=== PATIENT | male | born 1965 ===

== ENCOUNTER 2022-09-09 15:36 | Outpatient (REF) | payer OTHER, SELFPAY ==
[2022-09-09 17:29] LABS: Anion Gap 10 (12-20); Blood Urea Nitrogen 26 mg/dL (9-16); Calcium 9.2 mg/dL (8.4-10.2); Carbon Dioxide 30 mmol/L (22-29); Chloride 105 mmol/L (96-108); Estimated Glomerular Filt Rate > 60; Glucose Random 100 mg/dL (60-115); Potassium 4.1 mmol/L (3.3-5.1); Sodium 141 mmol/L (135-145)
== END 2022-09-09 15:37 | disposition home or self-care (01) ==
LOC: HO.LAB 15:36
PROVIDERS: PCP Internal Medicine; Visit Provider Surgery
DX: R22.31 Localized swelling, mass and lump, right upper limb (principal); M54.2 Cervicalgia
CPT/HCPCS: 36415; 80048; 99202

== ENCOUNTER 2022-09-24 16:29 | Outpatient (REF) | payer OTHER, SELFPAY ==
--- NOTE | ~2022-09-24 | MR_ITS ---
EXAMINATION: MR SHOULDER WITHOUT AND WITH CONTRAST, RIGHT CLINICAL INFORMATION: Right shoulder pain. Lump, increasing in size. COMPARISON: None TECHNIQUE: MRI of the shoulder was performed before and after the intravenous administration of 7.5 mL Gadavist on a high-field scanner. FINDINGS: ROTATOR CUFF: Intact. No muscle atrophy or fatty infiltration. BICEPS: Intact. CORACOACROMIAL ARCH: The undersurface of the acromion is curved with no subacromial spur. The acromioclavicular joint is normal. Trace fluid/edema within the subacromial subdeltoid bursa with minimal enhancement consistent with mild bursitis. LABRUM/CAPSULE: No displaced labral tear. Intact joint capsule. GLENOHUMERAL JOINT/MARROW: Intact articular cartilage. No acute osseous injury. No marrow enhancement. No concerning lytic or blastic osseous lesion. DELTOID: Within the anterior deltoid muscle there is a fat signal lesion measuring 3.8 x 5.9 x 8.5 cm (AP by ML by CC). No soft tissue component or postcontrast enhancement. There is a prominent vessel along the superior aspect of the lesion without inflammation or soft tissue. MR/MR shoulder RT wo/w con IMPRESSION: 1. 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 No soft tissue component or postcontrast enhancement to suggest a more aggressive lesion. 2. Mild subacromial subdeltoid bursitis. 3. No acute osseous abnormality. No concerning lytic or blastic osseous lesion.
== END 2022-09-24 16:30 | disposition home or self-care (01) ==
LOC: HO.MRI 16:29
PROVIDERS: Visit Provider Surgery
DX: R22.30 Localized swelling, mass and lump, unspecified upper limb (principal)
CPT/HCPCS: 73223; A9585

== ENCOUNTER 2022-10-09 16:13 | Outpatient (REF) | payer OTHER, SELFPAY ==
--- NOTE | ~2022-10-09 | US_ITS ---
EXAMINATION: US THYROID CLINICAL INFORMATION: Thyroid nodule. COMPARISON: None TECHNIQUE: Linear transducer grayscale and color Doppler examination with attention to the region of the thyroid. FINDINGS: SIZE: Measurements of the thyroid lobes and nodules are given in sagittal, anteroposterior and transverse dimensions respectively. Right Thyroid Lobe: 4.8 x 1.6 x 1.8 cm, volume 7.2 mL. Parenchyma: The gland echotexture is homogeneous. Thyroid vascularity is increased. Left Thyroid Lobe: 4.1 x 2.0 x 2.3 cm, volume 10.0 mL. Parenchyma: The gland echotexture is heterogeneous. Thyroid vascularity is increased. Isthmus: 0.2 cm in maximum AP dimension. Estimated total number of nodules greater than or equal to 1 cm: 1. [employer] nodules are described as follows: 1. Location: Left mid. Size: 2.9 x 1.8 x 1.9 cm, volume 5.2 mL. Nodule characteristics: Composition: Solid/almost completely solid (2). Echogenicity: Isoechoic (1). Shape: Not taller than wide (0). Margins: Ill-defined (0). Echogenic Foci: Comet-tail artifacts (0). ACR TI-RADS total points: 2 ACR TI-RADS category: 2 6 x 5 x 5 mm hyperechoic solid nodule inferior to the left lobe. This demonstrates minimal vascularity. NODES: Small left cervical lymph node measuring 6 x 6 x 6 mm. This is diffusely hypoechoic with loss loss of normal fatty hilum. This demonstrates mixed cortical and hilar flow. US/US thyroid IMPRESSION: 2 x 3 cm left thyroid nodule. Fine-needle aspiration recommended. ACR TI-RADS RECOMMENDATION REFERENCE: Ultrasound-guided fine-needle aspiration, followup ultrasound, no further follow up. * TR1 (0 point) and TR 2 (2 points): No FNA or follow up. * TR3 (3 points): FNA if more than or equal to 2.5 cm in maximum dimension, followup ultrasound in 1, 3 and 5 years if 1.5 to 2.4 cm in maximum dimension. * TR4 (4-6 points): FNA if more than or equal to 1.5 cm in maximum dimension, followup ultrasound in 1, 2, 3 and 5 years if 1 to 1.4 cm in maximum dimension. * TR5 (more than or equal to 7 points): FNA if more than or equal to 1 cm in maximum dimension, followup ultrasound every year for 5 years if 0.5 to 0.9 cm in maximum dimension. * TR3, TR4 or TR5 nodules that are below the size threshold for followup receive no follow up.
== END 2022-10-09 16:14 | disposition home or self-care (01) ==
LOC: HO.US 16:13
PROVIDERS: PCP Internal Medicine; Visit Provider Internal Medicine
DX: R91.1 Solitary pulmonary nodule (principal)
CPT/HCPCS: 76536

== ENCOUNTER → 2022-10-14 15:16 | Outpatient (BNVA) | payer OTHER, SELFPAY | PROVIDERS: PCP Internal Medicine; Visit Provider Surgery | DX: D17.9 Benign lipomatous neoplasm, unspecified (principal); R22.31 Localized swelling, mass and lump, right upper limb; M54.2 Cervicalgia | CPT/HCPCS: 99212 ==

== ENCOUNTER 2023-02-09 15:03 | Outpatient (REF) | payer OTHER, SELFPAY ==
[2023-02-09 18:06] LABS: Free T4 (Free Thyroxine) 0.89 ng/dL (0.71-1.85); Thyroid Stimulating Hormone 1.77 uIU/mL (0.32-4.0)
== END 2023-02-09 15:04 | disposition home or self-care (01) ==
LOC: HO.LAB 15:03
PROVIDERS: PCP Internal Medicine; Visit Provider Internal Medicine
DX: E04.2 Nontoxic multinodular goiter (principal); Z79.899 Other long term (current) drug therapy
CPT/HCPCS: 36415; 84439; 84443; 99202

== ENCOUNTER → 2023-02-25 07:53 | Outpatient (BNVA) | payer OTHER, SELFPAY | PROVIDERS: PCP Internal Medicine; Visit Provider Orthopaedic Surgery | DX: M65.341 Trigger finger, right ring finger (principal); M65.332 Trigger finger, left middle finger; M65.342 Trigger finger, left ring finger; M65.352 Trigger finger, left little finger | CPT/HCPCS: 20550; 99202; J1100 ==

== ENCOUNTER 2023-03-10 13:56 | Emergency (ER) | payer OTHER, SELFPAY ==
--- NOTE | ~2023-03-10 | US_ITS ---
EXAMINATION: US ABDOMEN LIMITED CLINICAL INFORMATION: Epigastric and right upper quadrant pain. COMPARISON: None available. TECHNIQUE: Real-time imaging of the right upper quadrant abdominal viscera. FINDINGS: PANCREAS: Not visualized due to bowel gas LIVER: There are prominent bile ducts or portal triads seen in the liver. There are small echogenic foci with ringdown artifact questionable for pneumobilia. No focal liver lesion or biliary duct dilatation. The liver echotexture is slightly heterogeneous the contour of the liver is slightly irregular questionable for mild cirrhotic change. GALLBLADDER: Surgically removed COMMON BILE DUCT: Not well visualized. RIGHT KIDNEY: Normal. No hydronephrosis. No renal calculi or focal parenchymal lesions. The kidney measures 10.6 cm in maximum dimension. FREE FLUID: None. US/US abdomen limited IMPRESSION: Post cholecystectomy. Question pneumobilia and mild cirrhotic changes of the liver. No biliary duct dilatation. Pancreas and common bile duct not seen.
--- NOTE | ~2023-03-10 | CT_ITS ---
EXAMINATION: CT ABDOMEN AND PELVIS WITH CONTRAST CLINICAL INFORMATION: Upper abdominal pain with pneumobilia. COMPARISON: Previous abdominal ultrasound from earlier the same day TECHNIQUE: Multidetector volumetric images were obtained from the superior aspect of the liver through the pubic symphysis following administration 85 mL of Omnipaque 350 intravenous contrast. Sagittal and coronal reformatted images were obtained on the technologist's workstation. Oral contrast: Yes This CT examination was performed using dose optimization techniques as appropriate, variously including the following: *Automated exposure control *Adjustment of mA and/or kV according to patient size (this includes techniques or standardized protocols for targeted exams where dose is matched to indication/reason for exam; i.e. extremities or head) *Use of iterative reconstruction technique DLP: 472 mGy-cm FINDINGS: LUNG BASES: Old trauma to the right posterior lateral chest wall. Right diaphragmatic hernia containing fat. LIVER, GALLBLADDER, AND BILIARY TREE: The liver is normal in size, shape, and attenuation. No focal hepatic lesion or biliary ductal dilatation is present. The gallbladder has been removed. PANCREAS: Unremarkable. SPLEEN: Unremarkable. ADRENAL GLANDS: Unremarkable. KIDNEYS AND URETERS: The kidneys are normal in size, shape, and attenuation. No hydronephrosis, hydroureter, or calculi seen. No perinephric stranding. BLADDER: Enlarged prostate gland that protrudes into the base of the bladder. GASTROINTESTINAL TRACT: Diverticulosis of the colon. No evidence of diverticulitis. Small and large bowel are otherwise unremarkable. The appendix is not seen. There is wall thickening of the distal stomach. Stomach is distended and filled with fluid. Small bowel is unremarkable. The appendix is not seen. ABDOMINAL WALL: Previous left groin hernia repair with mesh. Small lipoma of the right gluteal muscles. LYMPH NODES: Normal. VASCULAR: Unremarkable. PELVIC VISCERA: The prostate gland is enlarged and protrudes into the base of the bladder. Prostate gland measures 5 x 5 cm in AP and transverse dimension. OSSEOUS STRUCTURES: Old right rib fractures. Mild degenerative changes of the spine. CT/CT abdomen pelvis w IV con IMPRESSION: Diverticulosis of the colon. No evidence of diverticulitis. Distended fluid-filled stomach and wall thickening of the distal stomach. This could be better evaluated with upper GI or endoscopy if clinically indicated. Enlarged prostate gland that protrudes into the base of the bladder. Normal-appearing liver. Old trauma to the right posterior lateral chest wall and a small right diaphragmatic hernia containing fat. Fleischner guidelines were followed.
[2023-03-10 14:10] VITALS: PULSE 55; RESP 16; TEMP 35.8; O2SAT 99; BMI 29.2
--- NOTE | 2023-03-10 14:12 | ED.ABDPAIN ---
HPI - Abdominal Pain General Chief Complaint: Abdominal Pain <ABHILASH Boyd - Last Filed: 03/10/23 14:17> Stated Complaint: Abd pain <ABHILASH Boyd Last Filed: 03/10/23 14:17> Time Seen by Provider: 03/10/23 19:35 <ABHILASH Boyd - Last Filed: 03/10/23 14:17> Source: patient <Jeronimo Gr MD - Last Filed: 03/11/23 01:12> Mode of arrival: ambulatory <Jeronimo Gr MD - Last Filed: 03/11/23 01:12> Limitations: no limitations <Jeronimo Gr MD - Last Filed: 03/11/23 01:12> History of Present Illness HPI narrative: Patient with History of BPH , status post cholecystectomy comes here for the pain in upper abdomen epigastric radiating to whole abdomen for last few hours slight nausea no vomiting no diarrhea patient used a gastritis in the past not taking any medication not take any NSAID <Jeronimo Gr MD - Last Filed: 03/11/23 01:12> Related Data Home Medications: Home Medications Medication Instructions Recorded Confirmed finasteride 5 mg tablet 5 mg PO DAILY 02/09/23 02/09/23 tamsulosin 0.4 mg capsule 0.4 mg PO DAILY 02/09/23 02/09/23 Previous Rx's Medication Instructions Recorded pantoprazole 40 mg tablet,delayed 40 mg PO DAILY #30 tabs 03/10/23 release (Protonix) sucralfate 1 gram tablet 1 g PO BID #60 tabs 03/10/23 <ABHILASH Boyd - Last Filed: 03/10/23 14:17> Allergies/Adverse Reactions: Allergies Allergy/AdvReac Type Severity Reaction Status Date / Time aspirin Allergy Mild Rash Verified 02/25/23 08:08 ibuprofen Allergy Mild Itching Verified 02/25/23 08:08 Penicillins Allergy Rash Verified 02/25/23 08:08 <ABHILASH Boyd Last Filed: 03/10/23 14:17> Review of Systems Review of Systems Yes all other systems are reviewed and are negative <Jeronimo Gr MD - Last Filed: 03/11/23 01:12> PMF Past Medical History Medical History: Medical History BPH (benign prostatic hyperplasia) Multinodular thyroid <ABHILASH Boyd - Last Filed: 03/10/23 14:17> Surgical History: Surgical History History of appendectomy History of hernia repair <ABHILASH Boyd - Last Filed: 03/10/23 14:17> Family History Family History: Family History Mother No problems noted. 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0 F Pulse Rate 55 54 Respiratory Rate 16 18 16 Blood Pressure 127/74 Pulse Oximetry 99 99 Oxygen Delivery Method Room Air Room Air 03/10/23 22:50 Temperature 98 F Pulse Rate 52 Respiratory Rate 13 Blood Pressure 120/80 Pulse Oximetry 95 Oxygen Delivery Method Room Air BMI result Body Mass Index 29.2 <Jeronimo Gr MD - Last Filed: 03/11/23 01:12> Appearance: Alert. Oriented X3. No acute distress. Eyes: PERRLA, No Nystagmus ENT: Pharynx normal. Oral Mucosa moist Neck: Normal inspection. Neck supple. CVS: Normal heart rate and rhythm. Pulses normal. Respiratory: No respiratory distress. Equal air entry bilateral, no wheezing/rales/rhonchi Abdomen: Soft mild epigastric tenderness no rebound tenderness or guarding Bowel sounds are present, no mass palpable, no CVA tenderness Skin: Skin warm and dry. Normal skin color. Normal skin turgor. Extremities: No lower extremity edema. No calf tenderness Neuro: Oriented X 3. No motor deficit. No sensory deficit.No cerebellar signs , cranial nerves II-XII intact <Jeronimo Gr MD - Last Filed: 03/11/23 01:12> Course Course Course Narrative: RME: 57 yo M w/PMHx BPH c/o epigastric/upper abd pain radiating up chest & to right shoulder since 12:30PM. Admit symptoms began after eating. Denies SOB, dysuria/hematuria Abdomen soft with epigastric/RUQ tenderness, rebound or guarding EKG, labs, UA, abdomen ultrasound ordered Full HPI, ROS and PE to be performed by primary ED provider. <ABHILASH Boyd - Last Filed: 03/10/23 14:17> Medical Decision Making Medical Decision Making [facility] Narrative: Patient ultrasound showed pneumobilia but CT scan was negative for any acute pathology. Will discharge patient home Prilosec for gastritis was to follow-up with gastroenterology <Jeronimo Gr MD - Last Filed: 03/11/23 01:12> Lab Data [facility] Lab Attestation statement: I reviewed the patient's lab results. <Jeronimo Gr MD - Last Filed: 03/11/23 01:12> Result Diagrams: 03/10/23 15:25 03/10/23 15:25 <ABHILASH Boyd - Last Filed: 03/10/23 14:17> Labs: Lab Results 05/07/2503/10/23 03/10/23 Range/Units 15:25 15:25 15:25 WBC 12.6 H (4.8-10.8) X10*3/uL RBC 4.59 L (4.60-5.80) X10*6/uL Hgb 14.4 (14.0-18.0) g/dl Hct 42.9 (42.0-52.0) % MCV 93.5 (80.0-98.0) fL MCH 31.4 (27.0-33.0) pg MCHC 33.6 (31.0-36.0) g/dl RDW 13.0 (11.0-16.0) % Plt Count 217 (160-400) X10*3/uL MPV 8.7 L (9.4-12.4) fL Immature Gran % (Auto) 0.4 (0.0-0.4) % Neut % (Auto) 86.3 H (45-73) % Lymph % (Auto) 7.7 L (20-40) % [place] % (Auto) 3.6 (2-11) % Eos % (Auto) 1.7 (0-4) % Baso % (Auto) 0.3 (0-2) % Lymph # (Auto) 1.0 L (1.2-4.9) X10*3/uL [place] # (Auto) 0.5 (0.1-1.2) X10*3/uL Eos # (Auto) 0.2 (0.0-0.4) X10*3/uL Baso # (Auto) 0.0 (0.0-0.2) X10*3/uL Abs Immat Gran (auto) 0.05 H (0.00-0.03) X10*3/uL Absolute Neuts (auto) 10.9 H (2.0-8.3) x10*3/uL Absolute Nucleated RBC 0.000 (0.0-0.012) X10*3/uL Nucleated RBC % (auto) 0.0 (0.0-0.2) /100WBC PT (10.0-13.1) SEC INR (0.9-1.1) Sodium 143 (135-145) mmol/L Potassium 3.9 (3.3-5.1) mmol/L Chloride 108 (96-108) mmol/L Carbon Dioxide 26 (22-29) mmol/L Anion Gap 13 (12-20) BUN 23 H (9-16) mg/dL Creatinine 0.92 (0.5-1.4) mg/dL Estim Creat Clear Calc 76.5 Estimated GFR > 60 Random Glucose 149 H (60-115) mg/dL Lactic Acid (0.5-2.0) mmol/L Calcium 9.3 (8.4-10.2) mg/dL Magnesium 2.5 (1.6-2.6) mg/dL Total Bilirubin 1.8 H (0.0-1.0) mg/dL Direct Bilirubin 0.8 H (0.0-0.5) mg/dL AST 218 H (5-37) U/L ALT 157 H (0-40) U/L Alkaline Phosphatase 80 (39-117) U/L Troponin I High Sens < 2.7 (<3.5-35.0) ng/L B-Natriuretic Peptide (<100) pg/mL Total Protein 6.5 (6.5-8.0) g/dL Albumin 4.2 (3.5-5.0) g/dL Lipase 29 (8-78) U/L 03/10/23 03/10/23 03/10/23 Range/Units 15:25 15:25 20:17 WBC (4.8-10.8) X10*3/uL RBC (4.60-5.80) X10*6/uL Hgb (14.0-18.0) g/dl Hct (42.0-52.0) % MCV (80.0-98.0) fL MCH (27.0-33.0) pg MCHC (31.0-36.0) g/dl RDW (11.0-16.0) % Plt Count (160-400) X10*3/uL MPV (9.4-12.4) fL Immature Gran % (Auto) (0.0-0.4) % Neut % (Auto) (45-73) % Lymph % (Auto) (20-40) % [place] % (Auto) (2-11) % Eos % (Auto) (0-4) % Baso % (Auto) (0-2) % Lymph # (Auto) (1.2-4.9) X10*3/uL [place] # (Auto) (0.1-1.2) X10*3/uL Eos # (Auto) (0.0-0.4) X10*3/uL Baso # (Auto) (0.0-0.2) X10*3/uL Abs Immat Gran (auto) (0.00-0.03) X10*3/uL Absolute Neuts (auto) (2.0-8.3) x10*3/uL Absolute Nucleated RBC (0.0-0.012) X10*3/uL Nucleated RBC % (auto) (0.0-0.2) /100WBC PT 11.7 (10.0-13.1) SEC INR 1.0 (0.9-1.1) Sodium (135-145) mmol/L Potassium (3.3-5.1) mmol/L Chloride (96-108) mmol/L Carbon Dioxide (22-29) mmol/L Anion Gap (12-20) BUN (9-16) mg/dL Creatinine (0.5-1.4) mg/dL Estim Creat Clear Calc Estimated GFR Random Glucose (60-115) mg/dL Lactic Acid 0.7 (0.5-2.0) mmol/L Calcium (8.4-10.2) mg/dL Magnesium (1.6-2.6) mg/dL Total Bilirubin (0.0-1.0) mg/dL Direct Bilirubin (0.0-0.5) mg/dL AST (5-37) U/L ALT (0-40) U/L Alkaline Phosphatase (39-117) U/L Troponin I High Sens (<3.5-35.0) ng/L B-Natriuretic Peptide 56 (<100) pg/mL Total Protein (6.5-8.0) g/dL Albumin (3.5-5.0) g/dL Lipase (8-78) U/L <ABHILASH Boyd - Last Filed: 03/10/23 14:17> Lab Results 03/10/23 03/10/23 03/10/23 Range/Units 15:25 15:25 15:25 WBC 12.6 H (4.8-10.8) X10*3/uL RBC 4.59 L (4.60-5.80) X10*6/uL Hgb 14.4 (14.0-18.0) g/dl Hct 42.9 (42.0-52.0) % MCV 93.5 (80.0-98.0) fL MCH 31.4 (27.0-33.0) pg MCHC 33.6 (31.0-36.0) g/dl RDW 13.0 (11.0-16.0) % Plt Count 217 (160-400) X10*3/uL MPV 8.7 L (9.4-12.4) fL Immature Gran % (Auto) 0.4 (0.0-0.4) % Neut % (Auto) 86.3 H (45-73) % Lymph % (Auto) 7.7 L (20-40) % [place] % (Auto) 3.6 (2-11) % Eos % (Auto) 1.7 (0-4) % Baso % (Auto) 0.3 (0-2) % Lymph # (Auto) 1.0 L (1.2-4.9) X10*3/uL [place] # (Auto) 0.5 (0.1-1.2) X10*3/uL Eos # (Auto) 0.2 (0.0-0.4) X10*3/uL Baso # (Auto) 0.0 (0.0-0.2) X10*3/uL Abs Immat Gran (auto) 0.05 H (0.00-0.03) X10*3/uL Absolute Neuts (auto) 10.9 H (2.0-8.3) x10*3/uL Absolute Nucleated RBC 0.000 (0.0-0.012) X10*3/uL Nucleated RBC % (auto) 0.0 (0.0-0.2) /100WBC PT (10.0-13.1) SEC INR (0.9-1.1) Sodium 143 (135-145) mmol/L Potassium 3.9 (3.3-5.1) mmol/L Chloride 108 (96-108) mmol/L Carbon Dioxide 26 (22-29) mmol/L Anion Gap 13 (12-20) BUN 23 H (9-16) mg/dL Creatinine 0.92 (0.5-1.4) mg/dL Estim Creat Clear Calc 76.5 Estimated GFR > 60 Random Glucose 149 H (60-115) mg/dL Lactic Acid (0.5-2.0) mmol/L Calcium 9.3 (8.4-10.2) mg/dL Magnesium 2.5 (1.6-2.6) mg/dL Total Bilirubin 1.8 H (0.0-1.0) mg/dL Direct Bilirubin 0.8 H (0.0-0.5) mg/dL AST 218 H (5-37) U/L ALT 157 H (0-40) U/L Alkaline Phosphatase 80 (39-117) U/L Troponin I High Sens < 2.7 (<3.5-35.0) ng/L B-Natriuretic Peptide (<100) pg/mL Total Protein 6.5 (6.5-8.0) g/dL Albumin 4.2 (3.5-5.0) g/dL Lipase 29 (8-78) U/L 03/10/23 03/10/23 03/10/23 Range/Units 15:25 15:25 20:17 WBC (4.8-10.8) X10*3/uL RBC (4.60-5.80) X10*6/uL Hgb (14.0-18.0) g/dl Hct (42.0-52.0) % MCV (80.0-98.0) fL MCH (27.0-33.0) pg MCHC (31.0-36.0) g/dl RDW (11.0-16.0) % Plt Count (160-400) X10*3/uL MPV (9.4-12.4) fL Immature Gran % (Auto) (0.0-0.4) % Neut % (Auto) (45-73) % Lymph % (Auto) (20-40) % [place] % (Auto) (2-11) % Eos % (Auto) (0-4) % Baso % (Auto) (0-2) % Lymph # (Auto) (1.2-4.9) X10*3/uL [place] # (Auto) (0.1-1.2) X10*3/uL Eos # (Auto) (0.0-0.4) X10*3/uL Baso # (Auto) (0.0-0.2) X10*3/uL Abs Immat Gran (auto) (0.00-0.03) X10*3/uL Absolute Neuts (auto) (2.0-8.3) x10*3/uL Absolute Nucleated RBC (0.0-0.012) X10*3/uL Nucleated RBC % (auto) (0.0-0.2) /100WBC PT 11.7 (10.0-13.1) SEC INR 1.0 (0.9-1.1) Sodium (135-145) mmol/L Potassium (3.3-5.1) mmol/L Chloride (96-108) mmol/L Carbon Dioxide (22-29) mmol/L Anion Gap (12-20) BUN (9-16) mg/dL Creatinine (0.5-1.4) mg/dL Estim Creat Clear Calc Estimated GFR Random Glucose (60-115) mg/dL Lactic Acid 0.7 (0.5-2.0) mmol/L Calcium (8.4-10.2) mg/dL Magnesium (1.6-2.6) mg/dL Total Bilirubin (0.0-1.0) mg/dL Direct Bilirubin (0.0-0.5) mg/dL AST (5-37) U/L ALT (0-40) U/L Alkaline Phosphatase (39-117) U/L Troponin I High Sens (<3.5-35.0) ng/L B-Natriuretic Peptide 56 (<100) pg/mL Total Protein (6.5-8.0) g/dL Albumin (3.5-5.0) g/dL Lipase (8-78) U/L <Jeronimo Gr MD - Last Filed: 03/11/23 01:12> Radiology Impression Discussion of test interpretation with radiology: I have reviewed the radiologist's reading. <Jeronimo Gr MD - Last Filed: 03/11/23 01:12> Radiologist Impression: US/US abdomen limited IMPRESSION: Post cholecystectomy. Question pneumobilia and mild cirrhotic changes of the liver. No biliary duct dilatation. Pancreas and common bile duct not seen. CT/CT abdomen pelvis w IV con IMPRESSION: Diverticulosis of the colon. No evidence of diverticulitis. Distended fluid-filled stomach and wall thickening of the distal stomach. This could be better evaluated with upper GI or endoscopy if clinically indicated. Enlarged prostate gland that protrudes into the base of the bladder. Normal-appearing liver. Old trauma to the right posterior lateral chest wall and a small right diaphragmatic hernia containing fat. Fleischner guidelines were followed. <Jeronimo Gr MD - Last Filed: 03/11/23 01:12> Medications Administered Discontinued Medications Generic Name Dose Route Start Last Admin Trade Name Freq PRN Reason Stop Dose Admin Al Hydroxide/Mg Hydroxide 30 ml 03/10/23 22:36 03/10/23 22:54 Magnesium Hydrox/Alum Hydrox 30 Ml Oral.Susp PO 03/10/23 22:37 30 ml ONCE ONE Administration Sodium Chloride 1,000 mls @ 999 mls/hr 03/10/23 20:11 03/10/23 22:17 Ns IV 03/10/23 21:11 Infused .Q1H1M ONE Infusion Iohexol 100 ml 03/10/23 20:56 03/10/23 20:56 Iohexol 350 Mg/Ml 100 Ml Infus..Btl IV 03/10/23 20:57 85 ml ONCE ONE Administration Morphine Sulfate 4 mg 03/10/23 20:10 03/10/23 20:32 Morphine Sulfate 4 Mg/Ml Cartridge IVPUSH 03/10/23 20:11 4 mg ONCE ONE Administration Protocol Omeprazole 40 mg 03/10/23 22:36 03/10/23 22:54 Omeprazole 40 Mg Capsule.Dr PO 03/10/23 22:37 40 mg ONCE ONE Administration Ondansetron HCl 4 mg 03/10/23 20:10 03/10/23 20:33 Ondansetron Hcl 4 Mg/2 Ml Vial IVPUSH 03/10/23 20:11 4 mg ONCE ONE Administration <ABHILASH Boyd - Last Filed: 03/10/23 14:17> Medications Administered Discontinued Medications Generic Name Dose Route Start Last Admin Trade Name Freq PRN Reason Stop Dose Admin Al Hydroxide/Mg Hydroxide 30 ml 03/10/23 22:36 03/10/23 22:54 Magnesium Hydrox/Alum Hydrox 30 Ml Oral.Susp PO 03/10/23 22:37 30 ml ONCE ONE Administration Sodium Chloride 1,000 mls @ 999 mls/hr 03/10/23 20:11 03/10/23 22:17 Ns IV 03/10/23 21:11 Infused .Q1H1M ONE Infusion Iohexol 100 ml 03/10/23 20:56 03/10/23 20:56 Iohexol 350 Mg/Ml 100 Ml Infus..Btl IV 03/10/23 20:57 85 ml ONCE ONE Administration Morphine Sulfate 4 mg 03/10/23 20:10 03/10/23 20:32 Morphine Sulfate 4 Mg/Ml Cartridge IVPUSH 03/10/23 20:11 4 mg ONCE ONE Administration Protocol Omeprazole 40 mg 03/10/23 22:36 03/10/23 22:54 Omeprazole 40 Mg Capsule.Dr PO 03/10/23 22:37 40 mg ONCE ONE Administration Ondansetron HCl 4 mg 03/10/23 20:10 03/10/23 20:33 Ondansetron Hcl 4 Mg/2 Ml Vial IVPUSH 03/10/23 20:11 4 mg ONCE ONE Administration <Jeronimo Gr MD - Last Filed: 03/11/23 01:12> Discharge Plan Discharge Clinical Impression: Acute on chronic gastritis <ABHILASH Boyd - Last Filed: 03/10/23 14:17> Patient Disposition: Home, Self-Care <ABHILASH Boyd - Last Filed: 03/10/23 14:17> Instructions: Gastritis (ED) <ABHILASH Boyd - Last Filed: 03/10/23 14:17> Additional Instructions: Take medication as prescribed Avoid fried and spicy food Do not take ibuprofen or Advil Follow-up with repair technician for further evaluation <ABHILASH Boyd - Last Filed: 03/10/23 14:17> Prescriptions: New pantoprazole [Protonix] 40 mg tablet,delayed release (DR/EC) 40 mg PO DAILY Qty: 30 0RF sucralfate 1 gram tablet 1 g PO BID Qty: 60 0RF No Action finasteride 5 mg tablet 5 mg PO DAILY tamsulosin 0.4 mg capsule 0.4 mg PO DAILY <ABHILASH Boyd - Last Filed: 03/10/23 14:17> Referrals: Rashaad Zaman MD [Physician] - 1 week <ABHILASH Boyd - Last Filed: 03/10/23 14:17> Stand Alone Forms: Work/School Release <ABHILASH Boyd - Last Filed: 03/10/23 14:17> Interventions: ED Discharge Assessment Last Done: 03/10/23 23:04 <ABHILASH Boyd - Last Filed: 03/10/23 14:17> Discharge Date/Time: 03/10/23 23:06 <ABHILASH Boyd - Last Filed: 03/10/23 14:17>
--- NOTE | 2023-03-10 14:13 | ECG_ITS ---
Test Reason : EPIGASTRIC ABD PAIN Blood Pressure : / mmHG Vent. Rate : 054 BPM Atrial Rate : 054 BPM P-R Int : 146 ms QRS Dur : 084 ms QT Int : 384 ms P-R-T Axes : 021 028 035 degrees QTc Int : 364 ms Sinus bradycardia Nonspecific T wave abnormality Abnormal ECG No previous ECGs available Referred By: Pamela Petersen Electronically Signed By:SVETLANA BAUMANN
[2023-03-10 15:31] LABS: MANUAL DIFF FLAG NO
[2023-03-10 15:35] LABS: Basophils Percent Auto 0.3 % (0-2); Eosinophils Absolute Auto 0.2 X10*3/uL (0.0-0.4); Eosinophils Percent Auto 1.7 % (0-4); Hematocrit 42.9 % (42.0-52.0); Hemoglobin 14.4 g/dl (14.0-18.0); Imm Gran Abs Auto 0.05 X10*3/uL (0.00-0.03); Imm Gran Pct Auto 0.4 % (0.0-0.4); Lymphocytes Percent Auto 7.7 % (20-40); Mean Corpuscular HGB Conc 33.6 g/dl (31.0-36.0); Mean Corpuscular Hemoglobin 31.4 pg (27.0-33.0); Mean Corpuscular Volume 93.5 fL (80.0-98.0); Mean Platelet Volume 8.7 fL (9.4-12.4); Monocytes Absolute Auto 0.5 X10*3/uL (0.1-1.2); Monocytes Percent Auto 3.6 % (2-11); Neutrophils Absolute Auto 10.9 x10*3/uL (2.0-8.3); Neutrophils Percent Auto 86.3 % (45-73); Platelet Count 217 X10*3/uL (160-400); Red Blood Count 4.59 X10*6/uL (4.60-5.80); White Blood Count 12.6 X10*3/uL (4.8-10.8)
[2023-03-10 15:46] LABS: Prothrombin Time 11.7 SEC (10.0-13.1)
[2023-03-10 16:05] LABS: B Type Natriuretic Peptide 56 pg/mL (<100)
[2023-03-10 16:14] LABS: Troponin-I High Sensitivity < 2.7 ng/L (<3.5-35.0)
[2023-03-10 16:23] LABS: Alanine Aminotransferase 157 U/L (0-40); Albumin Level 4.2 g/dL (3.5-5.0); Alkaline Phosphatase 80 U/L (39-117); Anion Gap 13 (12-20); Aspartate Amino Transferase 218 U/L (5-37); Bilirubin Direct 0.8 mg/dL (0.0-0.5); Bilirubin Total 1.8 mg/dL (0.0-1.0); Blood Urea Nitrogen 23 mg/dL (9-16); Calcium 9.3 mg/dL (8.4-10.2); Carbon Dioxide 26 mmol/L (22-29); Chloride 108 mmol/L (96-108); Creatinine Clr Calc Pharmacy 76.5; Estimated Glomerular Filt Rate > 60; Glucose Random 149 mg/dL (60-115); Lipase 29 U/L (8-78); Magnesium 2.5 mg/dL (1.6-2.6); Potassium 3.9 mmol/L (3.3-5.1); Sodium 143 mmol/L (135-145); Total Protein 6.5 g/dL (6.5-8.0)
[2023-03-10 20:03] VITALS: BP 127/74; PULSE 54; RESP 18; TEMP 36.7; O2SAT 99
--- NOTE | 2023-03-10 20:11 | PC.NURSE ---
Pt ca&ox3. Pt's daughter at bedside. Pt reporting 10/10 abdm pain that radiates to mid/left side of chest. Provider in to see pt. No signs of distress. Pt provided pillow, hob elevated for comfort. Will continue to monitor.
[2023-03-10 20:32] VITALS: RESP 16
[2023-03-10] MEDS: Morphine Sulfate 4 MG/ML CARTRIDGE IVPUSH (20:32)
[2023-03-10] MEDS: ondansetron HCL 4 MG/2 ML VIAL IVPUSH (20:33)
[2023-03-10 20:38] LABS: Lactic Acid 0.7 mmol/L (0.5-2.0)
--- NOTE | 2023-03-10 20:41 | PC.NURSE ---
Pt ca&ox3. No signs of distress. Pt medicated per mar. Pt changed into gown. Will continue to monitor.
[2023-03-10] MEDS: 0.9 % Sodium Chloride 1,000 ML 999 ML IV (20:45)
[2023-03-10] MEDS: iohexoL 350 MG/ML 100 ML INFUS..BTL IV (20:56)
--- NOTE | 2023-03-10 21:08 | PC.NURSE ---
pt back from ct scan, pt resting in bed comfortably
[2023-03-10 22:50] VITALS: BP 120/80; PULSE 52; RESP 13; TEMP 36.6; O2SAT 95
[2023-03-10] MEDS: Omeprazole 40 MG CAPSULE.DR PO (22:54)
[2023-03-10] MEDS: Magnesium Hydrox/Alum Hydrox 30 ML ORAL.SUSP PO (22:54)
== END 2023-03-10 23:06 | disposition home or self-care (01) ==
PROVIDERS: Physician Assistant; Emergency Provider Internal Medicine; PCP Internal Medicine
DX: K29.00 Acute gastritis without bleeding (principal); K29.50 Unspecified chronic gastritis without bleeding; Z79.899 Other long term (current) drug therapy
CPT/HCPCS: 36415; 74177; 76705; 80048; 80076; 83605; 83690; 83735; 83880; 84484; 85025; 85610; 87040; 93005; 96361; 96374; 96375; 99284; 99285; J2270; J2405; Q9967

== ENCOUNTER → 2023-03-24 10:36 | Outpatient (BNVA) | payer OTHER, SELFPAY | PROVIDERS: PCP Internal Medicine; Visit Provider Orthopaedic Surgery | DX: M65.332 Trigger finger, left middle finger (principal); M65.331 Trigger finger, right middle finger; M65.341 Trigger finger, right ring finger; M65.342 Trigger finger, left ring finger; M65.352 Trigger finger, left little finger | CPT/HCPCS: 20550; 99212; J1100 ==

== ENCOUNTER 2023-03-25 09:39 | Outpatient (REF) | payer OTHER, SELFPAY ==
--- NOTE | 2023-03-25 09:15 | EMG_ITS ---
Please see scanned EMG / Nerve Conduction Report. MTDD
== END 2023-03-25 09:40 | disposition home or self-care (01) ==
LOC: HO.NEURO 09:39
PROVIDERS: PCP Internal Medicine; Visit Provider Internal Medicine
DX: R20.0 Anesthesia of skin (principal); M79.641 Pain in right hand; M79.642 Pain in left hand
CPT/HCPCS: 95885; 95913

== ENCOUNTER 2023-04-27 09:16 | Outpatient (REF) | payer OTHER, SELFPAY ==
[2023-04-27 11:42] LABS: Prothrombin Time 11.3 SEC (10.0-13.1)
[2023-04-27 12:44] LABS: ~HepC Num1 0.09 S/CO (0.00-0.79); ~Hepatitis C Antibody Nonreactive (Nonreactive)
[2023-04-27 12:49] LABS: HBS Num1 > 1000.00 mIU/mL (0-7.99); HBc Num1 0.09 S/CO (0.00-0.79); HBsAGNum1 0.44 S/CO (0.00-0.99); HIV AB/AG Nonreactive (Nonreactive); HIV Num 1 0.06 S/CO (0.00-0.99); Hepatitis B Core Antibody Nonreactive (Nonreactive); Hepatitis B Surface Antigen Negative (Negative); ~Hepatitis B Surface Antibody REACTIVE (Nonreactive)
[2023-04-27 13:06] LABS: Hepatitis A Antibody IgG REACTIVE (Nonreactive); ~Hepatitis A Antibody IgG 9.89 S/CO (0.00-0.99)
[2023-04-27 13:07] LABS: Alanine Aminotransferase 31 U/L (0-40); Alkaline Phosphatase 52 U/L (39-117); Anion Gap 10 (12-20); Aspartate Amino Transferase 22 U/L (5-37); Bilirubin Total 0.9 mg/dL (0.0-1.0); Blood Urea Nitrogen 24 mg/dL (9-16); Calcium 9.5 mg/dL (8.4-10.2); Carbon Dioxide 30 mmol/L (22-29); Chloride 107 mmol/L (96-108); Estimated Glomerular Filt Rate > 60; Glucose Random 88 mg/dL (60-115); Potassium 3.9 mmol/L (3.3-5.1); Sodium 143 mmol/L (135-145); Total Protein 6.6 g/dL (6.5-8.0)
[2023-04-27 13:28] LABS: Ferritin 285 ng/mL (20-250)
== END 2023-04-27 09:17 | disposition home or self-care (01) ==
LOC: HO.LAB 09:16
PROVIDERS: Visit Provider Internal Medicine
DX: Z11.4 Encounter for screening for human immunodeficiency virus [HIV] (principal); R10.9 Unspecified abdominal pain; K74.60 Unspecified cirrhosis of liver; R79.89 Other specified abnormal findings of blood chemistry; Z80.0 Family history of malignant neoplasm of digestive organs
CPT/HCPCS: 36415; 80053; 80321; 82728; 85610; 86704; 86706; 86708; 86803; 87340; 87389; 99202

== ENCOUNTER 2023-05-14 09:36 | Emergency (ER) | payer OTHER, SELFPAY ==
[2023-05-14 10:02] VITALS: BP 125/73; PULSE 57; RESP 14; TEMP 36.1; O2SAT 99; BMI 24.2
--- NOTE | 2023-05-14 10:48 | ED.SKABFB ---
HPI - Skin/Abscess/Foreign Bdy General Chief complaint: Skin/Abscess/Foreign Body Stated complaint: rash Time Seen by Provider: 05/14/23 10:13 Source: patient, RN notes reviewed and old records reviewed Mode of arrival: ambulatory History of Present Illness HPI narrative: 57-year-old male with a past medical history of multinodular thyroid, BPH, presenting to the ED complaining of pruritic rash to bilateral upper extremities and chest x 4 days. 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 Denies other new exposures including new soaps/lotion/detergent, new medications, no insect bites, SOB/CP. Has been using OTC creams without relief MD complaint: rash Onset (ago): day(s) Related Data Home Medications Medication Instructions Recorded Confirmed finasteride 5 mg tablet 5 mg PO DAILY 02/09/23 02/09/23 tamsulosin 0.4 mg capsule 0.4 mg PO DAILY 02/09/23 02/09/23 Previous Rx's Medication Instructions Recorded pantoprazole 40 mg tablet,delayed 40 mg PO DAILY #90 tabs 04/27/23 release (Protonix) peg 3350-electrolytes 236 240 ml PO Q10M colonoscopy #4,000 04/27/23 gram-22.74 gram-6.74 gram-5.86 mL gram solution (Golytely) cetirizine 10 mg capsule (Zyrtec) 10 mg PO DAILY PRN allergy 05/14/23 symptoms #14 caps diphenhydramine HCl 25 mg capsule 25 mg PO TID PRN itching #14 caps 05/14/23 (Benadryl) hydrocortisone 1 % topical 1 appl topical BID PRN rash #28.35 05/14/23 ointment (Anti-Itch grams (hydrocortisone)) prednisone 20 mg tablet 40 mg PO DAILY 5 days #10 tabs 05/14/23 Allergies Allergy/AdvReac Type Severity Reaction Status Date / Time aspirin Allergy Mild Rash Verified 03/24/23 10:51 ibuprofen Allergy Mild Itching Verified 03/24/23 10:51 Penicillins Allergy Rash Verified 03/24/23 10:51 Review of Systems Review of Systems: Constitutional: No Fever, No Chills ENT/Mouth: No Ear Pain, No Nasal Congestion, No sore throat, No Rhinorrhea, No Swallowing Difficulty Cardiovascular: No Chest Pain, No SOB Respiratory: No Cough, No Sputum Gastrointestinal: No Nausea, No Vomiting, No Diarrhea, No Constipation, No Abdominal pain Genitourinary: No Dysuria, No Urinary Frequency, No Hematuria, No Flank Pain Musculoskeletal: No joint pain, No Myalgias, No Joint Swelling Skin: No Skin Lesions, + rash Neuro: No Weakness, No Numbness, No Paresthesias Yes all other systems are reviewed and are negative Constitutional: Constitutional: Reports as per [facility] Past Medical History Attestation statement: The following information was validated with the patient. Source: old records reviewed Medical History BPH (benign prostatic hyperplasia) Multinodular thyroid Surgical History History of appendectomy History of hernia repair Family History Family History Mother No problems noted. 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 Physical Exam Vital Signs: Vital Signs: Last Vital Signs Temp 96.9 F 05/14/23 10:02 Pulse 57 05/14/23 10:02 Resp 14 05/14/23 10:02 BP 125/73 05/14/23 10:02 Pulse Ox 99 05/14/23 10:02 O2 Del Method Room Air 05/14/23 10:02 BMI result Body Mass Index 24.2 Const: General: cooperative, healthy appearing, no acute distress, alert and awake Orientation/consciousness: patient oriented x3 Limitations: no limitations HEENT: Head: Yes normal to inspection and Yes atraumatic Ears: hearing grossly normal bilaterally General nose exam: Normal external nose present Face and sinus: Yes normal facial exam Mouth: Normal oral and palatal mucosa present Throat: Yes posterior oropharynx normal, Yes tonsils normal, Yes uvula midline, No peritonsillar mass, No uvula laterally displaced and No uvular edema Eyes: General: appearance normal, both eyes and all related structures EOM: EOMs intact bilaterally Neck: Neck: Yes normal visual inspection and Yes no meningeal signs Resp: Effort & Inspection: normal respiratory effort, no respiratory distress and no stridor Cardio: Rate: regular rate Skin: Other: + erythematous macular papular rash in clusters and linear bynum to bilateral upper extremities and lower neck/chest. Mild excoriations. No hand/palm or sole involvement. No mucous membrane involvement. No sloughing Wounds: no wounds Neuro: General: patient oriented x3, tone normal and no meningeal signs Gait exam (Neuro): Normal gait present Extrem: General: Yes normal to inspection Medications Administered Discontinued Medications Generic Name Dose Route Start Last Admin Trade Name Freq PRN Reason Stop Dose Admin Diphenhydramine HCl 25 mg 05/14/23 10:38 05/14/23 10:49 Diphenhydramine Hcl 25 Mg Capsule PO 05/14/23 10:39 25 mg ONCE ONE Administration Prednisone 40 mg 05/14/23 10:38 05/14/23 10:49 Prednisone 20 Mg Tablet PO 05/14/23 10:39 40 mg ONCE ONE Administration Medical Decision Making Medical Decision Making MDM Narrative: 57-year-old male with a past medical history of multinodular thyroid, BPH, presenting to the ED complaining of pruritic rash to bilateral upper extremities and chest x 4 days. On exam vital signs stable, NAD, nontoxic appearing physical exam as noted above, erythematous rash consistent with poison connie or poison oak appreciated to bilateral upper extremities and chest. No palm/sole or mucous membrane involvement. No sloughing. Low suspicion for SJS/TENs. No respiratory distress. Plan: P.o. prednisone, topical hydrocortisone, Benadryl/Zyrtec Results discussed with patient including worrisome signs and symptoms and strict return precautions, and when to return to the emergency department. They verbalized understanding and feel safe for discharge at this time. Differential Diagnosis Differential Diagnoses: The differential diagnosis associated with the presentation includes As above External Record Review External record reviewed: Inpatient record, Office record, Outpatient record, Prior outpatient labs, Prior outpatient radiology, Primary care record and Outside ED record Prescription Management I considered prescription management with: Other (as above) Discharge Plan Discharge Clinical Impression: Poison connie Patient Disposition: Home, Self-Care Instructions: Poison Connie (ED) Additional Instructions: You likely have poison connie or poison oak Prednisone as an oral steroid which will help with her rash Topical hydrocortisone should be apply to rash for itching, avoid application to face, hands/feet or genital region as potentially can discolored your skin Zyrtec and Benadryl will also help with itching/allergic reaction symptoms. Benadryl will make you drowsy If symptoms persist or worsen return to the ED Es probable que tengas hiedra venenosa o aleyda venenoso Prednisona bbee un esteroide oral que ayudar? con nguyen erupci?n La hidrocortisona t?pica se debe aplicar a la erupci?n para la picaz?n, evite la aplicaci?n en la larisa, las deborah/los pies o la allen?n genital, ya que puede decolorar la piel. Zyrtec y Benadryl tambi?n ayudar?n con los s?ntomas de picaz?n/reacci?n al?rgica. Benadryl te adormecer? Si los s?ntomas persisten o empeoran, regrese al servicio de urgencias. Prescriptions: New prednisone 20 mg tablet 40 mg PO DAILY 5 Days Qty: 10 0RF diphenhydramine HCl [Benadryl] 25 mg capsule 25 mg PO TID PRN (Reason: itching) Qty: 14 0RF Zyrtec 10 mg capsule 10 mg PO DAILY PRN (Reason: allergy symptoms) Qty: 14 0RF hydrocortisone [Anti-Itch (HC)] 1 % ointment 1 appl topical BID PRN (Reason: rash) Qty: 28.35 0RF No Action finasteride 5 mg tablet 5 mg PO DAILY tamsulosin 0.4 mg capsule 0.4 mg PO DAILY peg 3350-electrolytes [Golytely] 236-22.74-6.74 -5.86 gram recon soln 240 ml PO Q10M Qty: 4000 0RF Rx Instructions: as per split prep instructions, until fecal effluent is clear pantoprazole [Protonix] 40 mg tablet,delayed release (DR/EC) 40 mg PO DAILY Qty: 90 0RF Referrals: Adlakha,Sanjuana, MD [Primary Care Provider] - Stand Alone Forms: Work/School Release Interventions: ED Discharge Assessment Last Done: 05/14/23 11:08 Discharge Date/Time: 05/14/23 11:09 Print Language: Arabic
[2023-05-14] MEDS: diphenhydrAMINE HCL 25 MG CAPSULE PO (10:49)
[2023-05-14] MEDS: predniSONE 20 MG TABLET 40 MG PO (10:49)
== END 2023-05-14 11:09 | disposition home or self-care (01) ==
PROVIDERS: Emergency Provider Emergency Medicine Emergency Medical Services; PCP Internal Medicine
DX: L23.7 Allergic contact dermatitis due to plants, except food (principal); Z79.899 Other long term (current) drug therapy
CPT/HCPCS: 99283; 99284

== ENCOUNTER 2023-05-19 09:25 | Outpatient (REF) | payer OTHER, SELFPAY ==
--- NOTE | ~2023-05-19 | US_ITS ---
PROCEDURE: US BIOPSY/FNA THYROID CLINICAL INFORMATION: Thyroid nodule COMPARISON: Ultrasound thyroid 10/09/2022 TECHNIQUE/FINDINGS: Preliminary ultrasound of the neck demonstrates heterogeneous left thyroid nodule in concordance with prior imaging. A site was marked and left neck was sterilely prepped and draped. Following the administration of 1% lidocaine for local anesthesia, a 22-gauge needle was utilized to perform fine needle aspiration. 3 samples were obtained. Pathologist on site confirmed adequate tissue sampling. Hemostasis was achieved with manual compression. Post FNA ultrasound does not demonstrate bleeding or any other complication. A dressing was applied. Patient tolerated procedure well with no immediate competitions. US/US biopsy thyroid IMPRESSION: FNA of left thyroid nodule as above.
[2023-05-19] MEDS: Lidocaine HCl 1 % MPF 5 ML VIAL SUBCUT (11:08)
== END 2023-05-19 09:26 | disposition home or self-care (01) ==
LOC: HO.US 09:25
PROVIDERS: PCP Internal Medicine; Visit Provider Internal Medicine
DX: E04.2 Nontoxic multinodular goiter (principal)
CPT/HCPCS: 10005; 88172; 88173; 88305

== ENCOUNTER → 2023-05-19 09:27 | Outpatient (BNV) | payer OTHER, SELFPAY | PROVIDERS: PCP Internal Medicine; Visit Provider Student in an Organized Health Care Education/Training Program | DX: E04.2 Nontoxic multinodular goiter (principal) | CPT/HCPCS: 10005 ==

== ENCOUNTER 2023-06-01 06:04 | Outpatient (REF) | payer OTHER, SELFPAY ==
[2023-06-01 08:04] LABS: Prostate Specific Antigen 2.85 ng/mL (<0.05-4.0)
== END 2023-06-01 06:05 | disposition home or self-care (01) ==
LOC: HO.LAB 06:04
PROVIDERS: PCP Internal Medicine; Visit Provider Urology
DX: Z12.5 Encounter for screening for malignant neoplasm of prostate (principal); R97.20 Elevated prostate specific antigen [PSA]
CPT/HCPCS: 36415; 84153

== ENCOUNTER 2023-06-22 13:28 | Outpatient (AMB) | payer OTHER, SELFPAY ==
--- NOTE | 2023-06-22 13:29 | A.OFFVIS_ITS ---
Intake Intake Visit Reasons: FNA Results Intake Note: Telehealth visit for FNA results. Review Appraiser Required: No Allergies aspirin Allergy (Mild, Verified 06/22/23 13:49) Rash ibuprofen Allergy (Mild, Verified 06/22/23 13:49) Itching Penicillins Allergy (Verified 06/22/23 13:49) Rash Medication List - Last Reconciled 06/22/23 by Cecilia Scales, DO finasteride 5 mg PO DAILY tamsulosin 0.4 mg PO DAILY HPI HPI Comments History of Present Illness Details 57 YO M with PMHx who is seen in F/U for a thyroid nodule. He reports initially being diagnosed with a multinodular thyroid in [place] m any years ago. He reports a biopsy then, but is unsure of the results. 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 Currently denies any dysphagia or hoarseness of voice. Denies compressive symptoms other than an occasional altered sensation in the neck. Does mention weight loss and occasional tremors. Denies any symptoms of hypothyroidism. Denies any history of head or neck irradiation. Denies any family history of thyroid cancer. Thyroid US: 10/09/2022 Right Thyroid Lobe: 4.8 x 1.6 x 1.8 cm, volume 7.2 mL. Parenchyma: The gland echotexture is homogeneous. Thyroid vascularity is increased. Left Thyroid Lobe: 4.1 x 2.0 x 2.3 cm, volume 10.0 mL. Parenchyma: The gland echotexture is heterogeneous. Thyroid vascularity is increased. Isthmus: 0.2 cm in maximum AP dimension. Estimated total number of nodules greater than or equal to 1 cm: 1. [employer] nodules are described as follows: 1. Location: Left mid. ?? ? Size: 2.9 x 1.8 x 1.9 cm, volume 5.2 mL. ?? ? Nodule characteristics: ?? ? Composition: Solid/almost completely solid (2). ?? ? Echogenicity: Isoechoic (1). ?? ? Shape: Not taller than wide (0). ?? ? Margins: Ill-defined (0). ?? ? Echogenic Foci: Comet-tail artifacts (0). ?? ? ACR TI-RADS total points: 2 ?? ? ACR TI-RADS category: 2 6 x 5 x 5 mm hyperechoic solid nodule inferior to the left lobe. This demonstrates minimal vascularity. NODES: Small left cervical lymph node measuring 6 x 6 x 6 mm. This is diffusely hypoechoic with loss loss of normal fatty hilum. This demonstrates mixed cortical and hilar flow. Labs: No recent pertinent labs to review. [facility] Medical History BPH (benign prostatic hyperplasia) Multinodular thyroid Surgical History History of appendectomy History of hernia repair Family History Mother No problems noted. 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 We discussed my recommendation for a L surgical lobectomy. He is in agreement with this plan of care. I will send referral to Dr. Bryant at this time All questions were answered. He is in agreement with this plan of care. I spent 20 minutes in reviewing the record, seeing the patient and documenting in the medical record, including 5 minutes on the phone with the Patient. Telehealth Telehealth Location of provider rendering services: practice address Location of patient: address on file Patient Identification confirmed using: Name, : Yes Telehealth method: voice only Patient verbally consented to treatment: Yes Patient verbally consented to billing insurance company: Yes Patient informed of any privacy concerns related to visit: Yes Coding Level of Care Code Tele Est Pt Level 3 (05045) Diagnoses Multinodular thyroid E04.2
== END 2023-06-22 14:41 | disposition home or self-care (01) ==
LOC: HO.ENCR 13:29
PROVIDERS: PCP Internal Medicine; Visit Provider Internal Medicine
DX: E04.2 Nontoxic multinodular goiter (principal)
CPT/HCPCS: 99213

== ENCOUNTER → 2023-06-22 13:28 | Outpatient (BNVA) | payer OTHER, SELFPAY | PROVIDERS: PCP Internal Medicine; Visit Provider Internal Medicine ==

== ENCOUNTER 2023-08-25 12:56 | Day surgery (SDC) | payer OTHER, SELFPAY ==
[2023-08-21 12:13] VITALS: BMI 27.0
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
--- NOTE | 2023-08-25 13:25 | MHC.SHP ---
Pre-Procedural Eval Section A Date of Service: 08/25/23 Section B Chief Complaint: Abd pain, fam hx of stomach ca, screening Details of Present Illness: PMH: BPH (benign prostatic hyperplasia) Multinodular thyroid Surgical History History of appendectomy History of hernia repair Relevant Family History (Specify if Yes): Yes Present Medications: see Short Stay Collaborative assessment Allergies: Allergies Allergy/AdvReac Type Severity Reaction Status Date / Time aspirin Allergy Mild Rash Verified 06/22/23 13:49 ibuprofen Allergy Mild Itching Verified 06/22/23 13:49 Penicillins Allergy Rash Verified 06/22/23 13:49 Review of Systems Review of Systems Comment: Ten point ROS negative Exam Exam Comment: Gen appear: No acute distress HEENT: no icterus Chest: No overt resp distress Abd: soft, nontender, nondistended Psych: Stable affect, answering questions appropriately Neuro: A/Ox3 noted to move all extremities spontaneously Ext: no peripheral edema Plan Diagnosis/Plan: Unchanged I have reviewed the history and physical and performed a pertinent physical examination on my patient. No changes have occurred unless specified. Time Spent With Patient Time: Total time managing care of this patient today ____ minutes.
[2023-08-25 13:42] VITALS: BP 118/69; PULSE 56; RESP 16; TEMP 36.8; O2SAT 97; BMI 28.2
[2023-08-25] MEDS: Lactated Ringers 1,000 ML 100 ML IVCONT (13:53)
--- NOTE | 2023-08-25 14:18 | P.OP_ITS ---
Operative Note Operative Note Date of Service: 08/25/23 Narrative: Procedure:?Esophagogastroduodenoscopy and colonoscopy Endoscopist:?Ivory Fuentes MD Indication:?Fam hx of gastric ca, screening for CRC Anesthesia Provider:?Dr Juan Nj Anesthesia Type:?MAC Instrument:?Olympus GIF-H190, [id number]-[id number] EGD Procedure:?? The procedure, indications, preparation and potential complications were reviewed with the patient who indicated understanding and gave written informed consent to proceed. aerial photograph interpreter assisted with the encounter. A physical exam was performed. The endoscope was introduced through the mouth, and advanced to the second part of duodenum. The mucosa was carefully examined on slow withdrawal of the end oscope. There were no immediate complications. Patient tolerated the procedure well. EGD Findings:? * Esophagus:? Normal mucosa noted in the entire esophagus. The Z-line is at 39 cm. * Stomach: Normal gastric mucosa was noted. Retroflexion was performed in the cardia. Mapping biopsies were obtained as per [facility] protocol due to fam hx of gastric ca. * Duodenum:? Normal duodenal mucosa noted to the extent examined. A 15 mm subepithelial nodule was seen in the first portion of the duodenum. The overlying mucosa was unroofed with a cold snare and cold forceps biopsies were taken from the lesion underneath. Colonoscopy Procedure:? The patient was then turned for the colonoscopy. A digital rectal exam was performed which was normal.? A distal attachment cap was affixed to the tip of the scope and the colonoscope was then inserted through the anus and advanced through the colon to the cecum at 75 cm and terminal ileum. Appendiceal orifice and ileocecal valve were identified. Mucosa was carefully examined under high definition white light as the instrument was slowly withdrawn in a retrograde panoramic fashion. Retroflexion was performed in rectum. The procedure was not difficult. There were no immediate obvious complications. The quality of the prep was BBPS: 3+3+2 = adequate Withdrawal time: 14 minutes Limitations: No limitation. Findings: Mucosa: Normal mucosa to cecum and terminal ileum. Protruding lesions: * One sessile polyp of size 5 mm was noted in the descending colon. Cold snare polypectomy was performed. The polyp was completely removed and retrieved. * Medium internal hemorrhoids without stigmata of recent bleeding. Excavated lesions: * Mild diverticulosis of the left-sided colon. Impression: 1. Normal esophagus 2. Normal stomach (biopsy) 3. Subepithelial nodule in duodenum (biopsy) 4. Normal colon and terminal ileum mucosa 5. 1 polyp removed 6. Internal hemorrhoids 7. Diverticulosis Recommendations:?? * Await pathology results. * If H pylori positive on biopsies, will need eradication * Management of the duodenal nodule will be based on biopsy results * Repeat colonoscopy in 7-10 years depending on the results of the polyp
[2023-08-25 15:03] VITALS: BP 100/61; PULSE 66; RESP 14; TEMP 36.4; O2SAT 97
[2023-08-25 15:20] VITALS: BP 128/79; PULSE 66; RESP 17; TEMP 36.4; O2SAT 97
== END 2023-08-25 15:49 | disposition home or self-care (01) ==
PROVIDERS: PCP Internal Medicine; Visit Provider Internal Medicine
PROC: (CPT 43239; principal; 2023-08-25 15:10)
DX: K31.82 Dieulafoy lesion (hemorrhagic) of stomach and duodenum (principal); K22.89 Other specified disease of esophagus; Z12.11 Encounter for screening for malignant neoplasm of colon; K63.5 Polyp of colon; K57.30 Diverticulosis of large intestine without perforation or abscess without bleeding; K64.8 Other hemorrhoids; Z80.0 Family history of malignant neoplasm of digestive organs; R79.89 Other specified abnormal findings of blood chemistry; R10.30 Lower abdominal pain, unspecified; Z90.49 Acquired absence of other specified parts of digestive tract; K74.60 Unspecified cirrhosis of liver; N40.0 Benign prostatic hyperplasia without lower urinary tract symptoms; Z79.899 Other long term (current) drug therapy
CPT/HCPCS: 43239; 43251; 45385; 88305; 88342

== ENCOUNTER → 2023-08-25 12:56 | Outpatient (BNV) | payer OTHER, SELFPAY | PROVIDERS: PCP Internal Medicine; Visit Provider Internal Medicine | DX: Z12.11 Encounter for screening for malignant neoplasm of colon (principal); K31.7 Polyp of stomach and duodenum; Z80.0 Family history of malignant neoplasm of digestive organs; K63.5 Polyp of colon; K57.30 Diverticulosis of large intestine without perforation or abscess without bleeding | CPT/HCPCS: 43239; 43251; 45385 ==

== ENCOUNTER 2023-09-15 10:02 | Outpatient (AMB) | payer OTHER, SELFPAY ==
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
[2023-09-15 10:07] VITALS: BP 115/78; PULSE 65; BMI 28.2
== END 2023-09-15 11:05 | disposition home or self-care (01) ==
PROVIDERS: PCP Internal Medicine; Visit Provider Internal Medicine
DX: R10.9 Unspecified abdominal pain (principal); Z80.0 Family history of malignant neoplasm of digestive organs; Z12.11 Encounter for screening for malignant neoplasm of colon; Z12.12 Encounter for screening for malignant neoplasm of rectum; R79.89 Other specified abnormal findings of blood chemistry
CPT/HCPCS: 99214

== ENCOUNTER → 2023-09-15 10:02 | Outpatient (BNVA) | payer OTHER, SELFPAY | PROVIDERS: PCP Internal Medicine; Visit Provider Internal Medicine | DX: Z12.11 Encounter for screening for malignant neoplasm of colon (principal); Z12.12 Encounter for screening for malignant neoplasm of rectum; R10.9 Unspecified abdominal pain; R79.89 Other specified abnormal findings of blood chemistry; Z80.0 Family history of malignant neoplasm of digestive organs | CPT/HCPCS: 99212 ==

== ENCOUNTER 2023-09-16 10:59 | Outpatient (AMB) | payer OTHER, SELFPAY ==
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
[2023-09-16 11:02] VITALS: BP 110/76; PULSE 62; BMI 28.7
== END 2023-09-16 11:23 | disposition home or self-care (01) ==
PROVIDERS: PCP Internal Medicine; Visit Provider Internal Medicine Endocrinology, Diabetes & Metabolism
DX: E04.2 Nontoxic multinodular goiter (principal)
CPT/HCPCS: 99213

== ENCOUNTER → 2023-09-16 10:59 | Outpatient (BNVA) | payer OTHER, SELFPAY | PROVIDERS: PCP Internal Medicine; Visit Provider Internal Medicine Endocrinology, Diabetes & Metabolism | DX: E04.2 Nontoxic multinodular goiter (principal) | CPT/HCPCS: 99212 ==

== ENCOUNTER 2023-12-01 14:53 | Outpatient (REF) | payer OTHER, SELFPAY ==
[2023-12-01 16:48] LABS: Prostate Specific Antigen 4.23 ng/mL (<0.05-4.0)
== END 2023-12-01 14:54 | disposition home or self-care (01) ==
LOC: HO.LAB 14:53
PROVIDERS: PCP Internal Medicine; Visit Provider Physician Assistant
DX: R97.20 Elevated prostate specific antigen [PSA] (principal)
CPT/HCPCS: 36415; 84153

== ENCOUNTER 2025-02-27 16:03 | Outpatient (REF) | payer OTHER, SELFPAY ==
--- NOTE | ~2025-02-27 | XR_ITS ---
EXAMINATION: XR RIBS, BILATERAL CLINICAL INFORMATION: PLEURODYMIA; right lateral rib pain. COMPARISON: None available. TECHNIQUE: PA view of the chest, 5 views of the bilateral ribs were obtained. FINDINGS: Mild eventration of the right hemidiaphragm. Lungs are clear. No consolidation, pneumothorax, or pleural effusion. The cardiomediastinal silhouette and pulmonary vasculature are normal. Surgical clips seen in the left lower neck, and in the right upper quadrant. There are numerous old healed right rib deformities. These involve ribs 7-11. There are subtle old healed fractures of the left sixth and seventh ribs. No definite acute rib fractures are evident. XR/XR ribs BI min 4V w CXR1V IMPRESSION: 1. No active pulmonary disease. 2. Numerous old right greater than left rib deformity/healed fractures. 3. No definite acute fracture or acute bony abnormality identified. Electronically signed by: Taran Olivas MD 03/02/2025 08:33 AM EDT
== END 2025-02-27 16:04 | disposition home or self-care (01) ==
LOC: HO.XRAY 16:03
PROVIDERS: PCP Internal Medicine; Visit Provider Internal Medicine
DX: R07.81 Pleurodynia (principal)
CPT/HCPCS: 71111

== ENCOUNTER → 2025-02-27 16:22 | Outpatient (BNV) | payer OTHER, SELFPAY | PROVIDERS: PCP Internal Medicine; Visit Provider Radiology Diagnostic Radiology | DX: R07.81 Pleurodynia (principal) | CPT/HCPCS: 71111 ==

== ENCOUNTER 2025-03-01 06:29 | Outpatient (REF) | payer OTHER, SELFPAY ==
[2025-03-01 06:50] LABS: MANUAL DIFF FLAG NO
[2025-03-01 07:21] LABS: Basophils Percent Auto 0.3 % (0-2); Eosinophils Absolute Auto 0.4 X10*3/uL (0.0-0.4); Eosinophils Percent Auto 5.1 % (0-4); Hematocrit 47.2 % (42.0-52.0); Hemoglobin 16.2 g/dl (14.0-18.0); Imm Gran Abs Auto 0.05 X10*3/uL (0.00-0.03); Imm Gran Pct Auto 0.6 % (0.0-0.4); Lymphocytes Absolute Auto 1.3 X10*3/uL (1.2-4.9); Lymphocytes Percent Auto 15.3 % (20-40); Mean Corpuscular HGB Conc 34.3 g/dl (31.0-36.0); Mean Corpuscular Volume 90.4 fL (80.0-98.0); Mean Platelet Volume 8.4 fL (9.4-12.4); Monocytes Absolute Auto 0.7 X10*3/uL (0.1-1.2); Monocytes Percent Auto 8.4 % (2-11); Neutrophils Absolute Auto 6.1 x10*3/uL (2.0-8.3); Neutrophils Percent Auto 70.3 % (45-73); Platelet Count 283 X10*3/uL (160-400); Red Blood Count 5.22 X10*6/uL (4.60-5.80); Red Cell Distribution Width 12.5 % (11.0-16.0); White Blood Count 8.6 X10*3/uL (4.8-10.8)
[2025-03-01 07:58] LABS: Alanine Aminotransferase 82 U/L (0-40); Albumin Level 4.2 g/dL (3.5-5.0); Alkaline Phosphatase 79 U/L (39-117); Anion Gap 12 (12-20); Aspartate Amino Transferase 47 U/L (5-37); Bilirubin Total 0.7 mg/dL (0.0-1.0); Blood Urea Nitrogen 22 mg/dL (9-16); Calcium 9.5 mg/dL (8.4-10.2); Carbon Dioxide 26 mmol/L (22-29); Chloride 107 mmol/L (96-108); Cholesterol 163 mg/dL (<200); Estimated Glomerular Filt Rate > 60; Glucose Random 97 mg/dL (60-115); HDL Cholesterol 40 mg/dL (>40); LDL Cholesterol Calculated 102 mg/dL (<100); Potassium 3.8 mmol/L (3.3-5.1); Sodium 141 mmol/L (135-145); Total Protein 7.2 g/dL (6.5-8.0); Triglycerides 105 mg/dL (<150)
[2025-03-01 08:31] LABS: Thyroid Stimulating Hormone 3.51 uIU/mL (0.32-4.0)
== END 2025-03-01 06:30 | disposition home or self-care (01) ==
LOC: HO.LAB 06:29
PROVIDERS: PCP Internal Medicine; Visit Provider Internal Medicine
DX: E89.0 Postprocedural hypothyroidism (principal); K21.9 Gastro-esophageal reflux disease without esophagitis; R07.81 Pleurodynia; R53.83 Other fatigue; Z68.31 Body mass index [BMI] 31.0-31.9, adult
CPT/HCPCS: 36415; 80053; 80061; 84443; 85025

== ENCOUNTER 2025-05-08 08:50 | Outpatient (REF) | payer OTHER, SELFPAY ==
[2025-05-08 11:43] LABS: Prostate Specific Antigen 4.80 ng/mL (<0.05-4.0)
== END 2025-05-08 08:51 | disposition home or self-care (01) ==
LOC: HO.LAB 08:50
PROVIDERS: PCP Internal Medicine; Visit Provider Physician Assistant Medical
DX: R97.20 Elevated prostate specific antigen [PSA] (principal)
CPT/HCPCS: 36415; 84153

== ENCOUNTER 2025-05-15 09:17 | Outpatient (AMB) | payer OTHER, SELFPAY ==
[2025-05-15 09:19] VITALS: BP 118/64; PULSE 76; O2SAT 95; BMI 29.8
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
== END 2025-05-15 09:49 | disposition home or self-care (01) ==
LOC: HO.ENCR 09:17
PROVIDERS: PCP Internal Medicine; Visit Provider Student in an Organized Health Care Education/Training Program
DX: E04.2 Nontoxic multinodular goiter (principal); C73 Malignant neoplasm of thyroid gland
CPT/HCPCS: 99214

== ENCOUNTER 2025-05-15 09:17 | Outpatient (REF) | payer OTHER, SELFPAY ==
[2025-05-15 12:07] LABS: Free T4 (Free Thyroxine) 0.93 ng/dL (0.71-1.85); Thyroid Stimulating Hormone 3.14 uIU/mL (0.32-4.0)
[2025-05-16 18:38] LABS: Thyroglobulin 9.2 ng/mL; Thyroglobulin Antibodies <1 IU/mL (< or = 1)
== END 2025-05-15 09:18 | disposition home or self-care (01) ==
LOC: HO.LAB 09:17
PROVIDERS: PCP Internal Medicine; Visit Provider Student in an Organized Health Care Education/Training Program
DX: C73 Malignant neoplasm of thyroid gland (principal); E04.2 Nontoxic multinodular goiter
CPT/HCPCS: 36415; 84432; 84439; 84443; 86800; 99212

== ENCOUNTER 2025-06-19 14:26 | Outpatient (REF) | payer OTHER, SELFPAY ==
--- NOTE | ~2025-06-19 | US_ITS ---
EXAMINATION: US THYROID CLINICAL INFORMATION: Goiter. Status post left hemithyroidectomy and biopsy of papillary thyroid. COMPARISON: October 09, 2022. TECHNIQUE: Linear transducer grayscale and color Doppler examination with attention to the region of the thyroid. FINDINGS: SIZE: Measurements of the thyroid lobes and nodules are given in sagittal, anteroposterior and transverse dimensions respectively. Right Thyroid Lobe: 4.9 x 1.7 x 1.8 cm, volume 7.5 mL. Previous: 4.8 x 1.6 x 1.8 cm, volume: 7.2 cc Parenchyma: The gland echotexture is heterogeneous. Thyroid vascularity is increased. Isthmus: 0.15 cm in maximum AP dimension. Previous: 0.20 cm. Estimated total number of nodules greater than or equal to 1 cm: 0.. NODES: Bilateral, prominent less than 1.6 cm lymph nodes level 2, left neck . US/US thyroid IMPRESSION: ACR TI-RADS category: 2 Nonspecific prominent lymph nodes, left level 2. ACR TI-RADS RECOMMENDATION REFERENCE: Ultrasound-guided fine-needle aspiration, followup ultrasound, no further follow up. * TR1 (0 point) and TR2 (2 points): No FNA or follow up. * TR3 (3 points): FNA if more than or equal to 2.5 cm in maximum dimension, followup ultrasound in 1, 3 and 5 years if 1.5 to 2.4 cm in maximum dimension. * TR4 (4-6 points): FNA if more than or equal to 1.5 cm in maximum dimension, followup ultrasound in 1, 2, 3 and 5 years if 1 to 1.4 cm in maximum dimension. * TR5 (more than or equal to 7 points): FNA if more than or equal to 1 cm in maximum dimension, followup ultrasound every year for 5 years if 0.5 to 0.9 cm in maximum dimension. * TR3, TR4 or TR5 nodules that are below the size threshold for followup receive no follow up. Electronically signed by: Kwame Renner MD 06/19/2025 03:14 PM EDT
--- OUTSIDE RECORDS SUMMARY | 2025-06-19 15:09 | XMS_ITS | Clinical Summary ---
Author Organization [facility] Address [address] [place] [id number] Phone Care Team Providers Care Dehorner Name Role Phone Pcp, Unknown Primary Care Provider Unavailabl e Encounters Date Type Department Care Team Description 05/24/2025 2:26 PM EDT - 05/24/2025 11:59 PM EDT Hospital Encounter [facility] Anatomic Pathology [address] [place] [id number] Discharge Disposition: Home or Self Care from Last 3 Months Social History Tobacco Use Types Packs/Day Years Used Date Smoking Tobacco: Never Assessed Education Answer Date Recorded Are you interested in more education? Not on enrique e 05/24/2025 Are you concerned about learning? Not on file 05/24/2025 No 05/24/2025 No 05/24/2025 Digital Access Answer Date Recorded No 05/24/2025 No 05/24/2025 Reliable internet access at home? Not on file 05/24/2025 Device with a working camera? Not on file Sex and Gender Information Value Date Recorded Sex Assigned at Not on file Legal Sex Male 2:20 PM EDT Gender Identity Not on file Sexual Orientation Not on file Plan of Treatment Not on file Medical Devices Not on file Insurance [facility] DIRECT CONNECTORCARE DIRECT CONNECTORCARE DIRECT CONNECTORCARE DIRECT ORCARE DIRECT CONNECTORCARE DIRECT Care Teams Dehorner Relationship Specialty Start Date End Date Pcp, Unknown PCP - General 05/24/25 Additional Source Comments The information contained in this document represents components of the legal health record. It is not the complete legal health record.[facility]
== END 2025-06-19 14:27 | disposition home or self-care (01) ==
LOC: HO.HMGCX 14:26
PROVIDERS: PCP Internal Medicine; Visit Provider Student in an Organized Health Care Education/Training Program
DX: E04.2 Nontoxic multinodular goiter (principal); C73 Malignant neoplasm of thyroid gland
CPT/HCPCS: 76536

== ENCOUNTER → 2025-06-19 14:32 | Outpatient (BNV) | payer OTHER, SELFPAY | PROVIDERS: PCP Internal Medicine; Visit Provider Radiology Diagnostic Radiology | DX: E04.2 Nontoxic multinodular goiter (principal) | CPT/HCPCS: 76536 ==

== ENCOUNTER 2025-06-27 12:36 | Outpatient (AMB) | payer OTHER, SELFPAY ==
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
[2025-06-27 12:42] VITALS: BP 102/70; PULSE 72; O2SAT 97; BMI 30.1
--- OUTSIDE RECORDS SUMMARY | 2025-06-27 13:19 | XMS_ITS | Clinical Summary ---
Author Organization [facility] Address [address] [place] [phone] Phone Care Team Providers Care Investigative Agent Name Role Phone Pcp, Unknown Primary Care Provider Unavailabl e Encounters Date Type Department Care Team Description 05/24/2025 2:26 PM EDT - 05/24/2025 11:59 PM EDT Hospital Encounter [facility] Anatomic Pathology [address] [place] [phone] Discharge Disposition: Home or Self Care from [...] file Medical Devices Not on file Insurance [facility] DIRECT CONNECTORCARE DIRECT CONNECTORCARE DIRECT CONNECTORCARE DIRECT ORCARE DIRECT CONNECTORCARE DIRECT Care Teams Investigative Agent Relationship Specialty Start Date End Date Pcp, Unknown PCP - General 05/24/25 Additional Source Comments The information contained in this document represents components of the legal health record. It is not the complete legal health record.[facility]
== END 2025-06-27 13:43 | disposition home or self-care (01) ==
LOC: HO.ENCR 12:36
PROVIDERS: PCP Internal Medicine; Visit Provider Student in an Organized Health Care Education/Training Program
DX: C73 Malignant neoplasm of thyroid gland (principal); E04.2 Nontoxic multinodular goiter
CPT/HCPCS: 99215

== ENCOUNTER → 2025-06-27 12:36 | Outpatient (BNVA) | payer OTHER, SELFPAY | PROVIDERS: PCP Internal Medicine; Visit Provider Student in an Organized Health Care Education/Training Program | DX: C73 Malignant neoplasm of thyroid gland (principal); E04.2 Nontoxic multinodular goiter | CPT/HCPCS: 99212 ==

== ENCOUNTER 2025-08-09 13:40 | Outpatient (AMB) | payer OTHER, SELFPAY ==
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
[2025-08-09 13:55] VITALS: BP 142/71; PULSE 68; BMI 29.3
== END 2025-08-09 14:34 | disposition home or self-care (01) ==
LOC: HO.HGI 13:40
PROVIDERS: PCP Internal Medicine; Visit Provider Internal Medicine
DX: K58.1 Irritable bowel syndrome with constipation (principal); R10.9 Unspecified abdominal pain; Z80.0 Family history of malignant neoplasm of digestive organs
CPT/HCPCS: 99214

== ENCOUNTER → 2025-08-09 13:40 | Outpatient (BNVA) | payer OTHER, SELFPAY | PROVIDERS: PCP Internal Medicine; Visit Provider Internal Medicine | DX: K58.1 Irritable bowel syndrome with constipation (principal); R10.9 Unspecified abdominal pain; Z80.0 Family history of malignant neoplasm of digestive organs | CPT/HCPCS: 99212 ==

== ENCOUNTER 2025-08-31 11:40 | Day surgery (SDC) | payer OTHER, SELFPAY ==
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
[2025-08-29 12:30] VITALS: BMI 29.3
[2025-08-31 12:31] VITALS: BMI 29.2
[2025-08-31 12:43] VITALS: BP 138/79; PULSE 59; RESP 16; TEMP 36.3; O2SAT 97
[2025-08-31] MEDS: Lactated Ringers 1,000 ML 100 ML IVCONT (12:50)
--- NOTE | 2025-08-31 13:16 | MHC.SHP ---
Pre-Procedural Eval Section A - 24 Hr Update-Section A only Date of Service: 08/31/25 The patient is an INPATIENT: No The patient has been examined within 24 hours of the surgical procedure. The History & Physical has been completed within 30 days and I have reviewed it.: Yes Section B - Complete if H&P > 30 days Chief Complaint: Family history of malignant neoplasm of digestive Allergies: Allergies Allergy/AdvReac Type Severity Reaction Status Date / Time aspirin Allergy Mild Rash Verified 08/09/25 13:58 ibuprofen Allergy Mild Itching Verified 08/09/25 13:58 Penicillins Allergy Rash Verified 08/09/25 13:58 Plan Diagnosis/Plan: Unchanged I have reviewed the history and physical and performed a pertinent physical examination on my patient. No changes have occurred unless specified. Time Spent With Patient Time: Total time managing care of this patient today ____ minutes.
--- NOTE | 2025-08-31 13:32 | P.OP_ITS ---
Operative Note Operative Note Date of Service: 08/31/25 Narrative: Procedure: Esophagogastroduodenoscopy Endoscopist: Ivory Fuentes MD Indication: Fam hx of gastric ca Anesthesia Provider: Serina Singh CRNA Anesthesia Type: MAC ?? EGD Procedure:?? The procedure, indications, preparation and potential complications were reviewed with the patient, who indicated understanding and gave written informed consent to proceed. A physical exam was performed. The endoscope was introduced through the mouth, and advanced to the second part of duodenum. The mucosa was carefully examined on slow withdrawal of the endoscope. The patient tolerated the procedure well. There were no immediate complications.? ? EGD Findings:? * Esophagus:? Normal mucosa noted in the entire esophagus. The Z line was at 38 cm. * Stomach:? Normal mucosa was noted in the stomach. A polyp measuring 8 mm was noted just below the GE junction best visualized in retroflexion. Cold forceps polypectomy was performed. Cold forceps gastric biopsies were taken as per [facility] protocol and sent out in 2 jars (body and antrum). * Duodenum:? Normal mucosa was noted in the whole of the examined duodenum. ? EGD Impressions:? * Normal esophagus * Gastric polyp (forceps polypectomy) * Normal stomach (biopsy) * Normal duodenum ?? Recommendations:?? * Follow biopsy results. Our office will call or send a letter with results within 7-10 days. * If H pylori +, patient will be prescribed eradication therapy followed by test of cure. * Avoid NSAIDs. * Future EGD for gastric ca screening may be deferred if no metaplasia noted. Above has been reviewed with the patient.
[2025-08-31 14:10] VITALS: BP 111/72; PULSE 67; RESP 15; TEMP 37.5; O2SAT 94
[2025-08-31 14:25] VITALS: BP 108/69; PULSE 78; RESP 12; O2SAT 96
== END 2025-08-31 15:02 | disposition home or self-care (01) ==
PROVIDERS: PCP Internal Medicine; Visit Provider Internal Medicine
PROC: 0DJ08ZZ Inspection of Upper Intestinal Tract, Via Natural or Artificial Opening Endoscopic (ICD-10-PCS; CPT 43235; principal; 2025-08-31 14:10)
DX: R10.9 Unspecified abdominal pain (principal); Z80.0 Family history of malignant neoplasm of digestive organs; K58.1 Irritable bowel syndrome with constipation; K22.82 Esophagogastric junction polyp
CPT/HCPCS: 43239; 88305; 88313; 88342; J2003; J2704; J3010

== ENCOUNTER → 2025-08-31 11:40 | Outpatient (BNV) | payer OTHER, SELFPAY | PROVIDERS: PCP Internal Medicine; Visit Provider Internal Medicine | DX: R10.9 Unspecified abdominal pain (principal); Z80.0 Family history of malignant neoplasm of digestive organs; K31.7 Polyp of stomach and duodenum | CPT/HCPCS: 43239 ==

== ENCOUNTER 2025-09-01 08:01 | Outpatient (AMB) | payer OTHER, SELFPAY ==
--- OUTSIDE RECORDS SUMMARY | 2025-09-01 08:04 | XMS_ITS | Clinical Summary ---
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 It is not the complete legal health record.[facility]
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
[2025-09-01 08:08] VITALS: BP 128/82; PULSE 71; O2SAT 95; BMI 29.1
== END 2025-09-01 08:44 | disposition home or self-care (01) ==
LOC: HO.ENCR 08:01
PROVIDERS: PCP Internal Medicine; Visit Provider Student in an Organized Health Care Education/Training Program
DX: E04.2 Nontoxic multinodular goiter (principal)
CPT/HCPCS: 99213

== ENCOUNTER → 2025-09-01 08:01 | Outpatient (BNVA) | payer OTHER, SELFPAY | PROVIDERS: PCP Internal Medicine; Visit Provider Student in an Organized Health Care Education/Training Program | DX: E04.2 Nontoxic multinodular goiter (principal) | CPT/HCPCS: 99212 ==

== ENCOUNTER 2025-10-31 07:56 | Outpatient (AMB) | payer OTHER, SELFPAY ==
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
[2025-10-31 08:06] VITALS: BP 132/82; PULSE 68; O2SAT 98; BMI 30.1
--- OUTSIDE RECORDS SUMMARY | 2025-10-31 09:20 | XMS_ITS | Clinical Summary ---
Author Organization [facility] Address [address] [place] [address] Phone Care Team Providers Care Mill Hand Plate Mill Name Role Phone Pcp, Unknown Primary Care [...] file Medical Devices Not on file Insurance [facility] [employer] DIRECT CONNE[employer]CARE DIRECT CONNE[employer] [place] [address] [employer] DIRECT CONNE[employer]CARE DIRECT CONNECTOR[employer]ARE DIRECT Care Teams Mill Hand Plate Mill Relationship Specialty Start Date End Date Pcp, Unknown PCP - General 05/24/25 Additional Source Comments The information contained in this document represents components of the legal health record. It is not the complete legal health record.[facility]
== END 2025-10-31 08:30 | disposition home or self-care (01) ==
LOC: HO.ENCR 07:56
PROVIDERS: PCP Internal Medicine; Visit Provider Student in an Organized Health Care Education/Training Program
DX: C73 Malignant neoplasm of thyroid gland (principal)
CPT/HCPCS: 99213

== ENCOUNTER → 2025-10-31 07:56 | Outpatient (BNVA) | payer OTHER, SELFPAY | PROVIDERS: PCP Internal Medicine; Visit Provider Student in an Organized Health Care Education/Training Program | DX: C73 Malignant neoplasm of thyroid gland (principal); Z98.890 Other specified postprocedural states | CPT/HCPCS: 99212 ==